=== PATIENT | female | born 1955 | race Caucasian/White ===

== ENCOUNTER 2024-05-05 07:00 | Day surgery (SDC) | payer MEDICARE, MEDICAID, SELFPAY ==
--- NOTE | 2024-04-29 07:00 | EKG_ITS ---
[facility] Test Date: 2024-04-29 Pat Name: ABY CONWAY Department: Room: - Gender: Female [employer]: [facility] : 1955 Requested By: Lorna Lai Order Number: [id number] Reading MD: Lorna Lai Measurements Intervals [place] Rate: 68 P: 79 NH: 168 QRS: 29 QRSD: 81 T: 75 QT: 396 QTc: 424 Interpretive Statements SINUS RHYTHM POSSIBLE LEFT ATRIAL ENLARGEMENT SEPTAL MYOCARDIAL INFARCTION , OF INDETERMINATE AGE No previous ECG available for comparison /store/S0/[id number]
[2024-04-29 08:14] VITALS: BMI 22.4
[2024-04-29 09:32] LABS: Basophils # (Auto) 0.1 Thou/mm3 (0.0-0.2); Basophils % (Auto) 2 % (0-2.5); Eosinophils # (Auto) 0.4 Thou/mm3 (0.0-0.5); Eosinophils % (Auto) 5 % (0-10); Hematocrit 39.1 % (36.0-46.0); Hemoglobin 12.9 g/dL (12.0-16.0); Immature Granulocytes % (Auto) 0 % (0-0); Immature Granulocytes Auto 0.04 Thou/mm3 (0.00-0.00); Lymphocytes # (Auto) 2.8 Thou/mm3 (1.0-4.8); Lymphocytes % (Auto) 31 % (10-50); Mean Corpuscular Hemoglobin 30.6 pg (25.0-35.0); Mean Corpuscular Volume 93 fL (80-100); Monocytes # (Auto) 0.8 Thou/mm3 (0.0-0.8); Monocytes % (Auto) 8 % (0-12); Neutrophils # (Auto) 5.1 Thou/mm3 (1.8-7.7); Neutrophils % (Auto) 55 % (37-80); Nucleated Red Blood Cell % 0 /100 WBC (0); Platelet Count 308 Thou/mm3 (140-440); RDW Standard Deviation 45.3 fL (36.4-46.3); Red Blood Count 4.21 Miln/mm3 (4.00-5.20); White Blood Count 9.3 Thou/mm3 (3.6-11.0)
[2024-04-29 09:47] LABS: Alanine Aminotransferase 16 U/L (10-49); Albumin, Serum 4.5 gm/dL (3.4-4.8); Albumin/Globulin Ratio 1.9 (1.2-2.2); Alkaline Phosphatase 98 U/L (46-116); Anion Gap 5 (7-16); Aspartate Amino Transferase 27 U/L (0-34); BUN/Creatinine Ratio 26 Ratio (12-20); Bilirubin,Total 0.5 mg/dL (0.3-1.2); Blood Urea Nitrogen 21 mg/dL (9-23); Calcium 10.5 mg/dL (8.3-10.6); Calcium (Corrected) 10.5 mg/dL (8.5-10.1); Chloride 104 mMol/L (98-107); Creatinine (Component) 0.8 mg/dL (0.6-1.3); Estimated Creatinine Clearance 44.7 mL/min (>60); Globulin 2.4 gm/dL (2.3-3.5); Glucose 88 mg/dL (74-106); Osmolality,Calculated 279 (275-295); Sodium 139 mMol/L (136-145); Total Protein 6.9 gm/dL (5.7-8.2); eGFR > 60 See Note
[2024-05-05] VITALS (7 sets, daily range): BP systolic 150–189; BP diastolic 71–90; PULSE 75–88; RESP 15–20; TEMP 36.1–36.2; O2SAT 95–100; BMI 22.1
--- NOTE | 2024-05-05 08:20 | ESOP_ITS ---
Date of Procedure 05/05/24 Pre Op Diagnosis Incarcerated right inguinal hernia Post Op Diagnosis Incarcerated direct right inguinal hernia Procedure Right inguinal hernia repair with mesh Findings Direct right inguinal hernia with incarceration of preperitoneal fat Procedure Description Patient brought into the operating room in supine position. After administration of general endotracheal anesthesia, patient's right groin was shaved, prepped and draped in standard surgical manner. The right inguinal crease was anesthetized with half percent Marcaine. An approximately 6 cm incision was made and dissection was carried to subcutaneous tissue. The Vijay's fascia was divided and the external oblique aponeurosis was opened towards the external ring. The hernia sac and the spermatic cord structures were from the posterior aspect of the external oblique aponeurosis at the level of pubic tubercle. The hernia sac was then meticulously dissected off the spermatic cord structures at the level of internal ring. Patient was noted to have direct right inguinal hernia with incarcerated preperitoneal fat. The sac was circumferentially dissected off surrounding tissue and reduced. The defect was closed with interrupted [id number] sutures using 0 Vicryl. The floor of inguinal canal was then reconstructed with ultra Pro proceed mesh. The mesh was secured with running 2-0 Prolene suture. The mesh secured medially to the pubic tubercle, superiorly into the conjoin tendon, inferiorly and to the shelving edge of inguinal ligament, the mesh was tacked under the external oblique aponeurosis laterally. The area was copiously and thoroughly washed and irrigated, all the fluids were suctioned and the suction fluid returned clear. Hemostasis was adequate and satisfactory. External oblique aponeurosis was closed with running 2-0 Vicryl suture, and Vijay's fascia was closed with interrupted suture using 3-0 Vicryl. The incision was closed with 4-0 Monocryl in subcutaneous fashion. Instruments, needles and sponge counts were reported to be correct ?2. Patient tolerated the procedure well. She was extubated, breathing spontaneously and without difficulty and was transferred to postanesthesia care in stable condition. Anesthesia GETA and local Pathology / specimen None Estimated Blood Loss 5 Condition Stable Disposition PACU Surgeon Lorna Lai MD Surgical Staff Operation Date: 05/05/24 07:30 Case Staff RAIL SIGNAL DESIGNER: Adair Jin RNinformation security analyst: Connie Schuler
--- NOTE | 2024-05-05 08:25 | SUR.PHASEI ---
0825: Pt. arrived with LMA in place, pt. hypertensive, Aaron AMAYA aware no new orders given, dressing to lower ABD CDI, no acitve bleed noted, report received from Alex HALL, Aaron AMAYA, and Keegan LEE.
[2024-05-05] MEDS: fentaNYL CIT INJ 50 mCg/ML AMP 2ML IV ×2 (08:42→08:51)
--- NOTE | 2024-05-05 09:27 | SUR.PHASEII ---
0927: Pt. AAOx4, vitals stable, breathing unlabored, no complaint of pain or nausea, dressing to lower ABD CDI, no active bleed noted, pt. tolerated sips of water, pt. ambulated to wheelchair with steady gait and no assist, no complications. Gave discharge instructions to the pt. and her ride, both verbalized understanding and had no further questions. Pt. left with all personal belongings.
== END 2024-05-05 09:27 | disposition home or self-care (01) ==
PROVIDERS: Anesthesiology; PCP Family Medicine; Referring Provider Surgery; Visit Provider Surgery
PROC: (CPT 49507; principal; 2024-05-05 07:30)
DX: K40.30 Unilateral inguinal hernia, with obstruction, without gangrene, not specified as recurrent (principal); Z01.810 Encounter for preprocedural cardiovascular examination
CPT/HCPCS: 49507; 36415; 80053; 80061; 81001; 82306; 83036; 84439; 84443; 85025; 93005; A4649; C1781; J0690; J1100; J1885; J2371; J2405; J2704; J3010; J3490

== ENCOUNTER 2024-10-13 08:31 | Emergency (ER) | payer MEDICARE, MEDICAID, SELFPAY ==
[2024-10-13 08:59] VITALS: BP 169/54; PULSE 89; RESP 18; TEMP 36.8; O2SAT 100; BMI 21.9
--- NOTE | 2024-10-13 09:32 | PD.EDRME ---
Rapid Medical Screening Exam RME Arrival date/time: 10/13/24 08:31 69-year-old female presents to the emergency department complains of right eye irritation right eye pain Chief Complaint: Eye Problems Vital signs: Vital Signs Temperature 98.2 F 10/13/24 08:59 Pulse Rate 89 10/13/24 08:59 Respiratory Rate 18 10/13/24 08:59 Blood Pressure 169/54 H 10/13/24 08:59 Pulse Oximetry (%) 100 10/13/24 08:59 Oxygen Delivery Method Room Air 10/13/24 08:59
[2024-10-13] MEDS: TETRACAINE PF OP SOL 0.5% 4 ML DRPETTE 1 DROP RIGHT EYE (11:22)
[2024-10-13 12:10] VITALS: BP 176/81; PULSE 77; RESP 18; TEMP 36.8; O2SAT 100
--- NOTE | 2024-10-13 15:27 | PD.EDADULT ---
ED General RME/HPI General Chief complaint: Eye Problems Stated complaint: RIGHT EYE SWOLLEN SHUT Arrival date/time: 10/13/24 08:31 RME / HPI RME / HPI narrative: Patient is a 69 years old female with PMH of hypertension presented to the emergency department complaining of right eye irritation and pain starting today morning. She denies trauma or any chemical exposure. She reports remote right eye trauma and was diagnosed with corneal abrasion. She woke up with her right eye swollen and severely painful. She denies any fever, chills, SOB, chest pain, abdominal pain. She denies history of glaucoma. She denies using contacts. Related Data Home Medications ?Medication ?Instructions ?Recorded ?Confirmed lisinopril 20 mg tablet 20 mg PO BID 03/25/24 04/29/24 Previous Rx's ?Medication ?Instructions ?Recorded docusate sodium 100 mg capsule 100 mg PO BID #40 caps 05/05/24 (Colace) hydrocodone 5 mg-acetaminophen 325 1 tab PO Q6H PRN pain (scale score 05/05/24 mg tablet 7-10) #20 tabs ibuprofen 600 mg tablet 600 mg PO Q8H PRN pain (scale 05/05/24 score 4-6) #15 tabs Allergies Allergy/AdvReac Type Severity Reaction Status Date / Time No Known Allergies Allergy Verified 10/13/24 08:35 Review of Systems Review of Systems Systems Reviewed: All systems reviewed, normal except as documented ED Exam Narrative Physical exam: Gen: Well-developed and well-nourished elderly femlae. HEENT: NCAT, PERRLA, EOMI, MMM, anicteric conjunctivae. Right upper and lower eyelids are swollen and draining clear fluid. Eye is hyperemic with no visible injury or trauma. CVS: normal S1 and S2. RRR. No M/R/G. Resp: CTA B/L. No rhonchi, rales, crackles or wheezing. Abd: soft, non-tender, non-distended. BS+ in all 4 quadrants. MSK: Good ROM in BUE & BLE. No edema or rash. Neuro: CN II-XII grossly intact. Strength 5/5 in BUE & BLE. Alert and oriented x3. Psych: appropriate mood and affect. Course Course Course Narrative: Eye exam: -O.S.: -O.D.: VA: 20/20 Inspection: Right upper and lower eyelids are swollen and draining clear fluid. Eye is hyperemic with no visible injury or trauma. Pupil: reactive, severe photophobia. EOM: intact. Quality Measures none Orders Category Date Time Status ED Eye Irrigation ONCE Care 10/13/24 09:05 Active Slit Lamp to Bedside X1 Care 10/13/24 13:42 Active [place] Lamp to Bedside X1 Care 10/13/24 09:05 Completed Fluorescein Sodium [Eiplt-C-Teszp] Med 10/13/24 14:00 Discontinued 1 mg BOTH EYES X1 ONE HYDROcodone*/APAP 5/325 [Clark 5/325] Med 10/13/24 13:46 Discontinued 1 tab PO X1 ONE TETRACAINE Op Maria Eugenia 0.5% [Pontocaine Op Maria Eugenia 0.5%] Med 10/13/24 09:05 Discontinued 1 drop RIGHT EYE X1 ONE Vital Signs Vital signs: Vital Signs Temperature 98.2 F 10/13/24 08:59 Pulse Rate 89 10/13/24 08:59 Respiratory Rate 18 10/13/24 08:59 Blood Pressure 169/54 H 10/13/24 08:59 Pulse Oximetry (%) 100 10/13/24 08:59 Oxygen Delivery Method Room Air 10/13/24 08:59 [facility] Patient data External records reviewed:: [facility] previous records Clinical information provided by:: patient and family Social determinants that could affect healthcare access:: none Patient has the following chronic illnesses:: hypertension How is presenting disease/condition affected by chronic disease/condition?: uneffected by Evaluation data The following diagnostics were reviewed and interpreted by me:: other (specify) Lab and/or radiology exams considered but not ordered:: na Interpretation Summary: na Medications Medications considered but not ordered:: na Medication administrations:: Medication Administration History Discontinued Medications Hydrocodone Bitart/Acetaminophen (Hydrocodone/Apap 5/325 Tablet) 1 tab PO X1 ONE Stop: 10/13/24 13:47 Fluorescein Sodium (Fluorescein Sod 1 Mg Strp) 1 mg BOTH EYES X1 ONE Stop: 10/13/24 14:01 Tetracaine HCl (Tetracaine Pf Op Maria Eugenia 0.5% 4 Ml Drpette) 1 drop RIGHT EYE X1 ONE Stop: 10/13/24 09:06 Last Admin: 10/13/24 11:22 Dose: 1 drop Documented By: as above Consultations Consultation(s) initiated? (list below): No Diagnosis Differential Diagnosis ED Complaint MDM: glaucoma, conjuctivitis, trauma, iritis Most likely diagnosis given after review of the tests above:: Conjuctivitis. Admission Indicated Admission indicated?: not indicated (left AMA) Explain why admission is indicated or not indicated:: left AMA Admission Request Was there a request for admission?: No Disposition Plan Disposition Plan: other (specify) (left AMA) Medical Decision Making Differential Diagnosis Differential Diagnosis: glaucoma, conjuctivitis, trauma, iritis Discharge Plan Plan Patient Disposition: Left Against Medical Advice Prescriptions/Referrals Prescriptions/Med Rec: No Action lisinopril 20 mg tablet 20 mg PO BID docusate sodium [Colace] 100 mg capsule 100 mg PO BID Qty: 40 0RF ibuprofen 600 mg tablet 600 mg PO Q8H PRN (Reason: pain (scale score 4-6)) Qty: 15 0RF hydrocodone-acetaminophen 5-325 mg tablet 1 tab PO Q6H MDD 4 PRN (Reason: pain (scale score 7-10)) Qty: 20 0RF Referrals: Shara Kan PA-C [Primary Care Provider] - In 1 week Problem List Clinical Impression: Acute eye pain Patient/Caregiver Discharge Instructions Print Language: Maldivian
== END 2024-10-13 19:19 | disposition left against medical advice (07) ==
PROVIDERS: Emergency Provider Emergency Medicine; PCP Physician Assistant Medical
DX: H57.11 Ocular pain, right eye (principal)
CPT/HCPCS: 99281

== ENCOUNTER → 2025-03-14 | Outpatient (CLI) | payer MEDICARE, SELFPAY ==
--- NOTE | 2025-03-14 08:15 | XR_ITS ---
Examination: Screening digital mammography, bilateral Computer aided detection 3-D breast Tomosynthesis, bilateral Date and time of exam: 03/14/2025, 8:17 AM Comparisons: May 2016 through October 2023 Indications: Screening Technique: Nonmagnified MLO, CC views of the breasts to been obtained, reconstructed from 3-D Tomosynthesis images. R2 computer aided detection program utilized for evaluation of suspicious masses and/or abnormal calcifications. 3-D Tomosynthesis images obtained. Technologist: Findings: There are scattered areas of fibroglandular density. No evidence of abnormal masses or suspicious calcifications. Impression:
== END | disposition home or self-care (01) ==
PROVIDERS: Referring Provider Physician Assistant Medical; Visit Provider Physician Assistant Medical
DX: Z12.31 Encounter for screening mammogram for malignant neoplasm of breast (principal); R92.8 Other abnormal and inconclusive findings on diagnostic imaging of breast
CPT/HCPCS: 77063; 77067

== ENCOUNTER → 2025-03-23 | Outpatient (CLI) | payer MEDICARE, SELFPAY ==
--- NOTE | 2025-03-23 13:00 | XR_ITS ---
Examination: CT chest, without intravenous contrast. Sagittal and coronal 2-D reconstructions. Exam date and time: March 23, 2025 1311 hours INDICATIONS: Smoking history 20 years, weight loss 11 pounds in the last 6 months CTDI:vol (mGy) 5.40 DLP: (mGycm) 201 Technique: Multiple 3.0 mm axial sections of the chest to been obtained. Bone and lung density settings are obtained. Sagittal and coronal 2-D reconstructions have been obtained. Low dose protocols were performed. One or more of the following dose reduction techniques were used; automated exposure control, adjustment of the mA and/or KV according to patient size, use of iterative reconstruction technique. Findings: No thoracic aortic aneurysmal dilatation Pulmonary artery segments are not enlarged Heavy calcification left main left anterior descending coronary arteries No paratracheal tracheobronchial or bronchopulmonary adenopathy. No pneumonia, pulmonary edema, pleural disease or pulmonary nodules No visualized liver or splenic lesion No pancreatic mass Kidneys partially visualized with 3 mm right renal calculus Prominent osteopenia IMPRESSION: No mediastinal lymphadenopathy Heavy calcification left main left anterior descending coronary arteries No pneumonia, pulmonary edema, pleural disease or pulmonary nodules. 3 mm calculus right kidney
== END | disposition home or self-care (01) ==
PROVIDERS: PCP Physician Assistant Medical; Referring Provider Physician Assistant Medical; Visit Provider Physician Assistant Medical
DX: I25.10 Atherosclerotic heart disease of native coronary artery without angina pectoris (principal); R91.8 Other nonspecific abnormal finding of lung field; F17.211 Nicotine dependence, cigarettes, in remission
CPT/HCPCS: 71271

== ENCOUNTER → 2025-05-23 | Outpatient (CLI) | payer MEDICARE, MEDICAID, SELFPAY ==
--- NOTE | 2025-05-23 07:30 | XR_ITS ---
Examination: MRI lumbar spine without contrast Date and time of exam: May 23, 2025, 0750 hours, comparison May 07, 2007 INDICATIONS: Low back pain 5 years radiating down the legs Technique: Multiple MRI axial and sagittal sections lumbar spine. Sagittal T2-weighted images, TR 3500, TE 118 T1 weighted transverse sections, TR 688 T8.5, T2-weighted sagittal sections T1 weighted sagittal sections TR 621, TE 30 T2 axial sections, TR 4, 190, TE 84. Findings: Lumbar dextroscoliosis 25 degrees Grade 1 anterolisthesis L4 on L5 No lumbar fracture. Diffuse moderate to advanced lumbar degenerative disc disease most prominent at L4-L5, L5-S1. Diffuse lumbar disc desiccation L5-S1 4 mm central lumbar disc bulge contiguous with the right S1 nerve root L4-L5 5 mm left foraminal disc bulge producing moderate left L4 ganglionic compression L3-L4 5 mm central lumbar disc bulge L L2-L3 small foraminal disc bulges but no ganglionic compression L1-L2 no disc protrusion IMPRESSION: Lumbar dextroscoliosis 25 degrees Diffuse moderate to advanced lumbar degenerative disc disease, most severe L4-L5, L5-S1 L5-S1 4 mm central lumbar disc bulge contiguous with the right S1 nerve root L4-L5 5 mm left foraminal disc bulge producing moderate left L4 ganglionic impression L3-L4 5 mm central lumbar disc bulge L4-L5
== END | disposition home or self-care (01) ==
PROVIDERS: PCP Physician Assistant Medical; Referring Provider Physician Assistant Medical; Visit Provider Physician Assistant Medical
DX: M51.360 Other intervertebral disc degeneration, lumbar region with discogenic back pain only (principal)
CPT/HCPCS: 72148